=== PATIENT | female | born 1950 | race Asian ===

== ENCOUNTER → 2016-12-26 | Outpatient (CLI) | payer OTHER ==
--- NOTE | 2016-12-26 14:50 | RAD ---
DATE: 12/26/2016. EXAM: DIGITAL SCREEN BILAT W/CAD. HISTORY: Routine mammographic screening. COMPARISON: This is the baseline study. This study was interpreted with the benefit of Computerized Aided Detection (CAD). FINDINGS: The breast parenchyma heterogeneously dense, which could reduce sensitivity of mammography. There are no suspicious masses, microcalcifications or architectural distortion. Coarsened vascular calcifications appear benign. BI-RADS CATEGORY: 2 BENIGN FINDING. RECOMMENDED FOLLOW-UP: 12M 12 MONTH FOLLOW-UP. PQRS compliance statement: Patient information was entered into a reminder system with a target due date 12/26/2017 for the next mammogram. Mammography is a sensitive method for finding small breast cancers, but it does not detect them all and is not a substitute for careful clinical examination. A negative mammogram does not negate a clinically suspicious finding and should not result in delay in biopsying a clinically suspicious abnormality. "Our facility is accredited by the [employer] Mammography Program."
== END | disposition home or self-care (01) ==
LOC: MAMMO 12:38
PROVIDERS: ATTEND Family Medicine
DX: Z12.31 Encounter for screening mammogram for malignant neoplasm of breast (principal)
CPT/HCPCS: G0202; 77067